=== PATIENT | female | born 1990 | race Caucasian/White ===

== ENCOUNTER 2019-07-31 07:37 | Emergency (ER) | payer OTHER ==
[2019-07-31 08:10] VITALS: PULSE 124; O2SAT 98
[2019-07-31] MEDS ORDERED: BENADRYL 50 MG/ML IM ONE (08:23)
[2019-07-31] MEDS ORDERED: BENADRYL 50 MG/ML ONE (08:25)
--- NOTE | 2019-07-31 08:28 | ERPHSYRPT ---
- History of Present Illness Time Seen by Provider: 07/31/19 08:24 Source: patient Exam Limitations: no limitations Patient Subjective Stated Complaint: pt stated that she started lamoTRigine a week prior, pt states that the dose was increased to 50 mg on Friday, pt states that the rash began last night, pt c/o of sore throat, swollen glands, swollen face, pt stated that she called an hours md, md stated that she should go to the hospital if she feels it is getting worse, pt stated that the rash has increase since this morning, pt stated rash is begining to itch Triage Nursing Assessment: pt ambulated into the er, pt has rash that extends from head to knees, lung sounds clear, heart rate is elevated and bounding, low grade temp, swelling present to face Physician History: pt stated that she started lamoTRigine a week prior, pt states that the dose was increased to 50 mg on Friday, pt states that the rash began last night, pt c /o of sore throat, swollen glands, swollen face, pt stated that she called an hours md, md stated that she should go to the hospital if she feels it is getting worse, pt stated that the rash has increase since this morning, pt stated rash is begining to itch Timing/Duration: yesterday Severity: moderate Associated Symptoms: other (swollen glands, throat) Allergies/Adverse Reactions: No Known Drug Allergies Allergy (Unverified 07/31/19 08:10) Home Medications: Lamotrigine 50 mg PO HS 07/31/19 [History] Hx Tetanus, Diphtheria Vaccination/Date Given: Yes Hx Influenza Vaccination/Date Given: No Hx Pneumococcal Vaccination/Date Given: No - Review of Systems Constitutional: No Fever, No Chills Eyes: No Symptoms Ears, Nose, & Throat: No Symptoms Respiratory: No Cough, No Dyspnea Cardiac: No Chest Pain, No Edema, No Syncope Abdominal/Gastrointestinal: No Abdominal Pain, No Nausea, No Vomiting, No Diarrhea Genitourinary Symptoms: No Dysuria Musculoskeletal: No Back Pain, No Neck Pain Skin: Rash Neurological: No Dizziness, No Focal Weakness, No Sensory Changes Psychological: No Symptoms Endocrine: No Symptoms All Other Systems: Reviewed and Negative - Past Medical History Neurological History: Migraines, Other Cardiac History: No Pertinent History Respiratory History: No Pertinent History Endocrine Medical History: No Pertinent History Musculoskeletal History: No Pertinent History GI Medical History: No Pertinent History History: No Pertinent History Female Reproductive Disorders: No Pertinent History Other Medical History: Notes she is under the care of a neurologist for possible demylenation in the brain - Past Surgical History Past Surgical History: No - Social History Smoking Status: Never smoker Exposure to second hand smoke: No Drug Use: none Patient Lives Alone: No - Female History Hx Last Menstrual Period: 07/20/2019 Hx Now: No - Nursing Vital Signs Nursing Vital Signs: Initial Vital Signs Temperature 99.4 F 07/31/19 07:48 Pulse Rate 124 H 07/31/19 07:48 Respiratory Rate 17 07/31/19 07:48 Blood Pressure 118/74 07/31/19 07:48 O2 Sat by Pulse Oximetry 98 07/31/19 07:48 Pain Scale Pain Intensity 8 - Physical Exam General Appearance: no apparent distress, alert Eye Exam: PERRL/EOMI, eyes nml inspection Ears, Nose, Throat Exam: normal ENT inspection, TMs normal, pharynx normal, moist mucous membranes Neck Exam: normal inspection, non-tender, supple, full range of motion Respiratory Exam: normal breath sounds, lungs clear, No respiratory distress Cardiovascular Exam: regular rate/rhythm, normal heart sounds, normal peripheral pulses Gastrointestinal/Abdomen Exam: soft, normal bowel sounds, No tenderness, No mass Back Exam: normal inspection, normal range of motion, No CVA tenderness, No vertebral tenderness Extremity Exam: normal inspection, normal range of motion, pelvis stable Neurologic Exam: alert, oriented x 3, cooperative, normal mood/affect, nml cerebellar function, nml station & gait, sensation nml, No motor deficits Skin Exam: normal color, warm, dry, No rash Lymphatic Exam: No adenopathy SpO2: 98 - Course Nursing assessment & vital signs reviewed: Yes - Progress Progress: improved Counseled pt/family regarding: diagnosis, need for follow-up - Departure Departure Disposition: Home Clinical Impression: Urticaria due to drug allergy Condition: Stable Critical Care Time: No Referrals: SUYAPA ALVAREZ [Primary Care Provider] - Instructions: Drug Allergy, Hives (DC) Additional Instructions: Please stop taking Lamictal. You can take Benadryl 25 mg every 6 hours as needed. Use calamine clear lotion for relief from itching. Follow-up with your primary care physician on Friday. Discharge/Care Plan PJ NICK was seen on 07/31/19 in the Emergency Room. The patient was counseled regarding Diagnosis,Lab results, Imaging studies, need for follow up and when to return to the Emergency Room. Prescriptions given: Discharge Note I have spoken with the patient and/or caregivers. I have explained the patient' s condition, diagnosis and treatment plan based on the information available to me at this time. I have answered the patient's and/or caregiver's questions and addressed any concerns. The patient and/or caregivers have as good understanding of the patient's diagnosis, condition and treatment plan as can be expected at this point. The vital signs have been stable. The patient's condition is stable and appropriate for discharge from the emergency department. The patient will pursue further outpatient evaluation with the primary care physician or other designated or consulting physician as outlined in the discharge instructions. The patient and/or caregivers are agreeable to this plan of care and follow-up instructions have been explained in detail. The patient and/or caregivers have received these instruction. The patient/and or caregivers are aware that any significant change in condition or worsening of symptoms should prompt an immediate return to this or the closest emergency department or call 911. PJ NICK was seen on 07/31/19 n the Emergency Room. At that time you were treated for an emergent condition, during your visit Laboratory, Radiology and/ or other procedures may have been ordered. It is very important that you follow- up with your Primary Care Physician SUYAPA ALVAREZ within the next 24-48 hours to review your Emergency Room visit and the final results of testing that was ordered. Some test results such as Urine Cultures, Blood Cultures, and other cultures if ordered will not be finalized for 24-48 hours. If you do not have a Primary Care Provider please call the medical records department at [phone] ext [phone] to obtain a copy of your results or you may sign into our patient portal to obtain these results by visiting us @ [email or web address] and completing the following steps: 1. Click on the Patient Portal link 2. Click the Patient Self Enrollment Link to complete the enrollment form and entering your 3. Once the enrollment form is completed you will receive an email with a temporary ID and password at the email address you provided. 4. Next choose a user name and password. Your user name must be at least 4 characters long and your password must be at least 4 characters long. 5. Choose a security question from the list and provide your answer to the question. If you already have signed into the Health Portal you may access your Health Care Information 19/05 by the following steps: 1. Login to our website @ [email or web address] 2. Enter your original user name and password. FAQS The [facility] Health Portal is an online tool that contains your Lab Results, Radiology Reports, Visit History, Discharge Instructions and Health Summary Lab and Radiology Results will not be available for 72 hours on the portal. The Portal is a secure site, passwords are encryted and URLs are re-written so they cannot be copied and pasted. You and authorized family members are the only ones who can access your Portal. Also there is a timeout feature that protects your information if you leave the Portal page open. If you have technical difficulty please use the Contact Us link on the page this will allow you to submit any questions you have regarding the Portal or you may contact the Medical Record Department at [phone] ext [phone].
[2019-07-31 08:33] VITALS: BP 109/72
== END 2019-07-31 08:54 | disposition home or self-care (01) ==
LOC: ED 07:37
DX: L23.3 Allergic contact dermatitis due to drugs in contact with skin (principal)
CPT/HCPCS: 96372; 99283; J1200